=== PATIENT | male | born 1975 | race Two or more races ===

== ENCOUNTER 2019-04-28 21:08 | Inpatient (IN) | payer BC ==
[~2019-04-28] VITALS: Ht 160 cm; Wt 93.9 kg
[2019-04-29] VITALS (63 sets, daily range): BP systolic 109–158; BP diastolic 37–110
[2019-04-29 00:39] LABS: PARTIAL THROMBOPLASTIN TIME 32.1 sec (23.4-31.0); PROTHROMBIN TIME 10.4 sec (9.6-11.0)
[2019-04-29 00:48] LABS: CHLORIDE 109 mEq/L (98-107)
[2019-04-29 01:29] LABS: BASOPHILS % 0.5 % (0.0-2.0); EOSINOPHILS % 1.4 % (0.0-5.0); HEMATOCRIT. 41.2 % (42.0-52.0); HEMOGLOBIN. 14.8 g/dL (14.0-18.0); LYMPHOCYTES % 25.5 % (20.0-50.0); MEAN CORPUSCULAR HEMOGLOBIN 29.5 pg (28.0-32.0); MEAN CORPUSCULAR VOLUME 82.5 fL (80.0-94.0); MEAN PLATELET VOLUME 14.4 fl (7.4-10.4); MONOCYTES % 8.1 % (2.0-8.0); NEUTROPHILS % 64.5 % (40.0-76.0); RED BLOOD CELL COUNT 4.99 mill/uL (4.7-6.1); RED CELL DISTRIBUTION WIDTH 13.2 % (11.6-14.6)
[2019-04-29] MEDS ORDERED: DEXAMETHASONE 10 MG/ML VIAL IV ONE ×2 (02:30→02:45)
[2019-04-29 02:51] LABS: CLARITY URINE CLEAR (CLEAR); COLOR URINE YELLOW (YELLOW); KETONES URINE TRACE (NEGATIVE); LEUKOCYTE ESTERASE URINE NEGATIVE (NEGATIVE); NITRITE URINE NEGATIVE (NEGATIVE); OCCULT BLOOD URINE 1+ (NEGATIVE); PH URINE 5.5 (4.5-8.0); PROTEIN URINE 1+ (NEGATIVE); SPECIFIC GRAVITY URINE 1.035 (1.005-1.030)
[2019-04-29 03:01] LABS: *AMPHETAMINES SCREEN URINE NEGATIVE (NEGATIVE); *BARBITURATES SCREEN URINE NEGATIVE (NEGATIVE); *BENZODIAZEPINES SCREEN URINE NEGATIVE (NEGATIVE); *COCAINE SCREEN URINE NEGATIVE (NEGATIVE)
[2019-04-29 03:02] LABS: CANNABINOID URINE SCREEN NEGATIVE (NEGATIVE); METHADONE URINE SCREEN NEGATIVE (NEGATIVE); OPIATES URINE SCREEN NEGATIVE (NEGATIVE); PHENCYCLIDINE URINE SCREEN NEGATIVE (NEGATIVE)
[2019-04-29 03:28] LABS: HEPATITIS B SURFACE ANTIGEN NEGATIVE
[2019-04-29 03:32] LABS: ETHANOL BLOOD < 10 mg/dL
[2019-04-29 03:58] LABS: HEPATITIS A AB IGM NEGATIVE (NEGATIVE)
[2019-04-29] MEDS ORDERED: HYDROCODONE/ACETAMINOPHEN 5/325MG TABLET PO PRN (09:45)
[2019-04-29] MEDS ORDERED: DOCUSATE SODIUM 100MG CAPSULE PO PRN (09:45)
[2019-04-29] MEDS ORDERED: ACETAMINOPHEN 325MG TABLET PO PRN (09:45)
[2019-04-29 10:25] LABS: PLATELET 1 x1000/uL (130-400)
[2019-04-29 10:28] LABS: HEMATOCRIT. 38.7 % (42.0-52.0); HEMOGLOBIN. 13.9 g/dL (14.0-18.0); MEAN CORPUSCULAR HEMOGLOBIN 29.6 pg (28.0-32.0); MEAN CORPUSCULAR VOLUME 82.2 fL (80.0-94.0); MEAN PLATELET VOLUME 8.4 fl (7.4-10.4); RED BLOOD CELL COUNT 4.71 mill/uL (4.7-6.1); RED CELL DISTRIBUTION WIDTH 13.2 % (11.6-14.6)
[2019-04-29 10:31] LABS: PLATELET 33 x1000/uL (130-400)
[2019-04-29 10:57] LABS: PLATELET ESTIMATE MARKEDLY DECREASED
[2019-04-29] MEDS: PANTOPRAZOLE SODIUM 40 MG/VIAL IV SCH (11:25)
[2019-04-29] MEDS ORDERED: CLONIDINE 0.1MG TABLET PO PRN (14:00)
[2019-04-29] MEDS ORDERED: MAGNESIUM/ALUMINUM HYDROXIDE/SIMETHICONE 30ML UDC PO PRN (14:00)
[2019-04-29] MEDS ORDERED: ONDANSETRON HCL 4MG/2ML INJ IV PRN (14:00)
[2019-04-29] MEDS: SODIUM CHLORIDE 0.9% 1,000 ML IV SCH (15:05)
[2019-04-29 20:22] LABS: CLARITY URINE CLEAR (CLEAR); COLOR URINE YELLOW (YELLOW); KETONES URINE TRACE (NEGATIVE); LEUKOCYTE ESTERASE URINE NEGATIVE (NEGATIVE); NITRITE URINE NEGATIVE (NEGATIVE); OCCULT BLOOD URINE NEGATIVE (NEGATIVE); PROTEIN URINE TRACE (NEGATIVE); SPECIFIC GRAVITY URINE 1.018 (1.005-1.030)
[2019-04-30] VITALS (70 sets, daily range): BP systolic 93–133; BP diastolic 31–79
[2019-04-30 05:35] LABS: BASOPHILS % 0.3 % (0.0-2.0); HEMATOCRIT. 37.3 % (42.0-52.0); HEMOGLOBIN. 13.2 g/dL (14.0-18.0); LYMPHOCYTES % 15.4 % (20.0-50.0); MEAN CORPUSCULAR HEMOGLOBIN 29.3 pg (28.0-32.0); MEAN CORPUSCULAR VOLUME 82.6 fL (80.0-94.0); MONOCYTES % 8.4 % (2.0-8.0); NEUTROPHILS % 75.9 % (40.0-76.0); RED BLOOD CELL COUNT 4.52 mill/uL (4.7-6.1); RED CELL DISTRIBUTION WIDTH 12.9 % (11.6-14.6)
[2019-04-30 05:36] LABS: CHLORIDE 111 mEq/L (98-107)
[2019-04-30 05:43] LABS: PLATELET 11 x1000/uL (130-400)
[2019-04-30 05:44] LABS: LDL CHOLESTEROL 85 mg/dL (5-100)
[2019-04-30 05:45] LABS: HDL CHOLESTEROL 49 mg/dL (40-59)
[2019-04-30] MEDS: PANTOPRAZOLE SODIUM 40 MG/VIAL IV SCH (08:32)
[2019-04-30] MEDS ORDERED: PNEUMOCOCCAL 23-VAL P-SAC VAC 0.5 ML IM ONE (10:00)
[2019-04-30] MEDS: SODIUM CHLORIDE 0.9% 1,000 ML IV SCH (11:01)
[2019-04-30] MEDS: PREDNISONE 20MG TABLET PO SCH ×3 (12:37→23:41)
[2019-05-01] VITALS (25 sets, daily range): BP systolic 99–137; BP diastolic 60–83
[2019-05-01 05:08] LABS: BASOPHILS % 0.1 % (0.0-2.0); HEMATOCRIT. 38.6 % (42.0-52.0); HEMOGLOBIN. 13.8 g/dL (14.0-18.0); LYMPHOCYTES % 7.8 % (20.0-50.0); MEAN CORPUSCULAR HEMOGLOBIN 29.3 pg (28.0-32.0); MEAN PLATELET VOLUME 11.2 fl (7.4-10.4); MONOCYTES % 2.9 % (2.0-8.0); NEUTROPHILS % 89.2 % (40.0-76.0); RED BLOOD CELL COUNT 4.71 mill/uL (4.7-6.1)
[2019-05-01 05:10] LABS: CHLORIDE 109 mEq/L (98-107)
[2019-05-01 05:18] LABS: PHOSPHORUS 3.4 mg/dL (2.5-4.9)
[2019-05-01 05:31] LABS: PLATELET 30 x1000/uL (130-400)
[2019-05-01] MEDS: PREDNISONE 20MG TABLET PO SCH ×4 (05:40→23:24)
[2019-05-01] MEDS: SODIUM CHLORIDE 0.9% 1,000 ML IV SCH ×2 (06:56→23:29)
[2019-05-01] MEDS: PANTOPRAZOLE SODIUM 40 MG/VIAL IV SCH (08:28)
[2019-05-02] VITALS (12 sets, daily range): BP systolic 100–152; BP diastolic 58–81
[2019-05-02] MEDS: PREDNISONE 20MG TABLET PO SCH ×4 (05:49→23:27)
[2019-05-02 08:02] LABS: CHLORIDE 109 mEq/L (98-107)
[2019-05-02 08:04] LABS: BASOPHILS % 0.1 % (0.0-2.0); HEMOGLOBIN. 13.7 g/dL (14.0-18.0); LYMPHOCYTES % 8.1 % (20.0-50.0); MEAN CORPUSCULAR HEMOGLOBIN 29.1 pg (28.0-32.0); MEAN CORPUSCULAR VOLUME 82.9 fL (80.0-94.0); MEAN PLATELET VOLUME 9.9 fl (7.4-10.4); NEUTROPHILS % 87.8 % (40.0-76.0); PLATELET 56 x1000/uL (130-400); RED BLOOD CELL COUNT 4.71 mill/uL (4.7-6.1); RED CELL DISTRIBUTION WIDTH 13.1 % (11.6-14.6)
[2019-05-02] MEDS: PANTOPRAZOLE SODIUM 40 MG/VIAL IV SCH (09:46)
[2019-05-02] MEDS: SODIUM CHLORIDE 0.9% 1,000 ML IV SCH (20:01)
[2019-05-03] VITALS (12 sets, daily range): BP systolic 96–127; BP diastolic 51–83
[2019-05-03] MEDS: PREDNISONE 20MG TABLET PO SCH ×4 (05:46→23:22)
[2019-05-03 07:12] LABS: BASOPHILS % 0.1 % (0.0-2.0); HEMATOCRIT. 40.1 % (42.0-52.0); LYMPHOCYTES % 9.5 % (20.0-50.0); MEAN CORPUSCULAR HEMOGLOBIN 29.3 pg (28.0-32.0); MEAN PLATELET VOLUME 9.4 fl (7.4-10.4); MONOCYTES % 4.9 % (2.0-8.0); NEUTROPHILS % 85.5 % (40.0-76.0); PLATELET 98 x1000/uL (130-400); RED BLOOD CELL COUNT 4.77 mill/uL (4.7-6.1)
[2019-05-03 07:50] LABS: CHLORIDE 108 mEq/L (98-107)
[2019-05-03] MEDS: PANTOPRAZOLE SODIUM 40 MG/VIAL IV SCH (08:33)
[2019-05-04] VITALS: BP 114/65
[2019-05-04 02:00] VITALS: BP 109/64
[2019-05-04 04:00] VITALS: BP 112/62
[2019-05-04 05:48] VITALS: BP 108/67
[2019-05-04 05:52] LABS: BASOPHILS % 0.2 % (0.0-2.0); HEMATOCRIT. 41.9 % (42.0-52.0); HEMOGLOBIN. 14.6 g/dL (14.0-18.0); LYMPHOCYTES % 9.3 % (20.0-50.0); MEAN CORPUSCULAR HEMOGLOBIN 29.3 pg (28.0-32.0); MEAN CORPUSCULAR VOLUME 83.8 fL (80.0-94.0); MEAN PLATELET VOLUME 8.9 fl (7.4-10.4); MONOCYTES % 5.7 % (2.0-8.0); NEUTROPHILS % 84.8 % (40.0-76.0); PLATELET 129 x1000/uL (130-400); RED CELL DISTRIBUTION WIDTH 13.5 % (11.6-14.6)
[2019-05-04 06:03] LABS: CHLORIDE 106 mEq/L (98-107)
[2019-05-04] MEDS: PREDNISONE 20MG TABLET PO SCH ×2 (06:34→13:00)
[2019-05-04] MEDS: PANTOPRAZOLE SODIUM 40 MG/VIAL IV SCH (08:30)
[2019-05-04] MEDS ORDERED: P50 MT (10:17)
[2019-05-04 10:27] VITALS: BP 119/70
== END 2019-05-04 14:32 | disposition home or self-care (01) | DRG 813 ==
LOC: ER 21:08 → MICUNO 04-29 02:47 → ENRESERV 04-29 07:18 → MICUSO 04-30 16:12 → 3WST 05-01 13:55
PROVIDERS: ADMIT Family Medicine Adult Medicine; ATTEND Family Medicine Adult Medicine
PROC: 30233R1 Transfusion of Nonautologous Platelets into Peripheral Vein, Percutaneous Approach (ICD-10-PCS; principal; 2019-04-29)
DX: D69.3 Immune thrombocytopenic purpura (principal); K62.5 Hemorrhage of anus and rectum; K06.8 Other specified disorders of gingiva and edentulous alveolar ridge; D72.825 Bandemia; T38.0X5A Adverse effect of glucocorticoids and synthetic analogues, initial encounter; Z60.2 Problems related to living alone; Z90.5 Acquired absence of kidney; Y92.89 Other specified places as the place of occurrence of the external cause
CPT/HCPCS: 36415; 71045; 76700; 80048; 80061; 80076; 80305; 80320; 81003; 83615; 83735; 84100; 84443; 85049; 86038; 86677; 86703; 86705; 86709; 86803; 86850; 86900; 87340; 93005; 93970; 96374; 97161; 99285; C9113; J1100; J7030; J7512; P9034; G0480